=== PATIENT | female | born 1970 | race Caucasian/White ===

== ENCOUNTER 2017-01-04 06:04 | Day surgery (SDC) | payer OTHER ==
[~2017-01-04] VITALS: Ht 157.5 cm; Wt 80.2 kg
[2017-01-04 06:32] VITALS: Ht 157.5 cm; Wt 80.2 kg
[2017-01-04] MEDS ORDERED: METH500T8 PO (06:42)
[2017-01-04] MEDS ORDERED: RANI150T5 PO (06:42)
[2017-01-04] MEDS ORDERED: TRHC5025 PO (06:42)
[2017-01-04] MEDS ORDERED: MECL12.574 PO (06:42)
[2017-01-04] MEDS ORDERED: TOPI25CA PO (06:42)
[2017-01-04] MEDS ORDERED: IBUP-1542 PO (06:42)
[2017-01-04] MEDS ORDERED: LORA10TA3 PO (06:42)
[2017-01-04 06:59] VITALS: BP 140/79; PULSE 81; RESP 18
[2017-01-04] MEDS ORDERED: FENTAnyl 50 MCG/ML VIAL ONE (07:52)
[2017-01-04] MEDS ORDERED: MIDAZOLAM 1 MG/ML 2 ML INJ ONE ×2 (07:52)
[2017-01-04 08:03] VITALS: BP 114/76; PULSE 77
[2017-01-04 08:10] VITALS: BP 114/80; PULSE 75; RESP 17
--- NOTE | 2017-01-04 11:10 | GILP ---
DATE OF PROCEDURE: 01/04/2017 NAME OF PROCEDURES: 1. Esophagogastroduodenoscopy and biopsy. 2. Colonoscopy. SURGEON: Lenora Rai MD PREOPERATIVE DIAGNOSES: 1. Abdominal pain. 2. Change in bowel habit. POSTOPERATIVE DIAGNOSES: 1. Gastritis with erosions. 2. Gastric mucosal biopsies were taken for Helicobacter pylori test. 3. Colonoscopy all the way to the cecum. 4. Internal hemorrhoids. 5. No colon neoplasm was identified. INDICATION FOR THE PROCEDURE: Ms. Ingris Muir is a 46-year-old female patient who had upper and lo wer abdominal pain, not responding to therapy. She also noticed a change in the bowel habit. The p atient was scheduled for endoscopy and colonoscopy for further evaluation. The procedures and possible complications are well explained to the patient, she understood and cons ented to the procedure. DESCRIPTION OF PROCEDURE: Under the influence of fentanyl and Versed, the gastroscope was carefully introduced into the esophagus and under direct vision, it was advanced to the stomach and through t he pylorus into the duodenal bulb and descending duodenum. FINDINGS: ESOPHAGUS: The mucosa was normal. STOMACH: The patient had gastritis. Gastric mucosal biopsies were taken for H. pylori test. DUODENUM: Normal. The colonoscope was carefully introduced in the rectum and under direct vision, it was advanced all the way to the cecum. FINDINGS: The patient had internal hemorrhoids. No colitis or neoplasm was identified. She tolerated the procedures very well and there was no complication from the procedures. At the en d of the procedures, she was awake with stable vital signs and she was discharged home to the care o f her family. IMPRESSION: 1. Gastritis. 2. Gastric mucosal biopsies were taken for Helicobacter pylori test. 3. Colonoscopy all the way to the cecum. 4. Internal hemorrhoids. 5. No colon neoplasm was identified. PLAN: 1. Omeprazole 40 mg p.o. q. a.m. 2. Await H. pylori test report. 3. High fiber diet. Dictated By: LENORA RAI MD GD/NTS Conf#: [id number] DID#: [id number] CC: LENORA RAI MD;*EndCC*
== END 2017-01-04 10:59 | disposition home or self-care (01) ==
LOC: GIL 06:04
PROVIDERS: ATTEND Internal Medicine Gastroenterology
DX: R19.4 Change in bowel habit (principal); K64.8 Other hemorrhoids; K29.60 Other gastritis without bleeding; B96.81 Helicobacter pylori [H. pylori] as the cause of diseases classified elsewhere
CPT/HCPCS: 43239; 45378; 87081; J2250; J3010; Z7610